=== PATIENT | male | born 1950 | race Caucasian/White ===

== ENCOUNTER 2022-01-29 08:08 | Day surgery (SDC) | payer MEDICARE, BC, SELFPAY ==
[2022-01-29 08:39] VITALS: BP 134/75; PULSE 57; RESP 16; TEMP 36.1; O2SAT 97; BMI 39.2
[2022-01-29] MEDS: Lactated Ringers 1,000 ML 15 ML IV (08:58)
[2022-01-29] MEDS: Cefazolin 2 GM in 0.9% Normal Saline 100 ML IV (09:20)
[2022-01-29] MEDS: Ropivacaine 0.5% 30 ML Vial (09:54)
[2022-01-29 10:11] VITALS: BP 115/60; BP 134/75; PULSE 54; RESP 18; TEMP 36.3; O2SAT 91
[2022-01-29 10:15] VITALS: BP 120/61; BP 134/75; PULSE 57; RESP 18; O2SAT 98
--- NOTE | 2022-01-29 10:17 | OP.PCM_ITS ---
Report of Operation Date of Procedure: 01/29/22 Description of Surgical Findings:: Preoperative diagnosis: Bilateral carpal Tunnel Syndrome Postoperative diagnosis: Bilateral carpal Tunnel Syndrome Procedure: Bilateral endoscopic Carpal Tunnel Release Surgeon: Ruben Bustamante DO Anesthesia: General with LMA Anesthesiologist: Dr. Reyes Complications: None apparent Drains: None Estimated blood loss: 2 cc Urinary output: None measured IV fluids: Per anesthesia record Specimens: None Surgical implants: None Surgical indications: This is a 71-year-old male seen in the outpatient setting diagnosed with bilateral carpal tunnel syndrome. The patient failed nonoperative management in the form of bracing, anti-inflammatory medications, activity modification. Operative intervention in form of endoscopic possible open carpal tunnel release was offered to bilateral hands. The risks, benefits, alternatives to procedure were reviewed with patient at length in the outpatient setting and he agreed to proceed. Risks included but were not limited to bleeding, infection, loss of life or limb, risk of anesthesia, incomplete release, neurovascular injury, persistent pain, need for additional surgery, stiffness, loss of hand function. Patient expressed understanding wish to proceed with surgery. Informed consent obtained in the office. Description of procedure: Patient was seen in preoperative holding area. Patient was identified by name, medical record number, date of . The operative extremities were marked with a surgical marker. We confirmed informed consent with the patient and all questions were answered to the patient's satisfaction. At time of his procedure, patient was brought to the operative suite and positioned supine a standard operating table. All bony prominences were well- padded. General anesthesia was induced and endotracheal tube placed. Bilateral upper extremities were then prepped for surgery by first applying a well-padded pneumatic tourniquet to the upper arms. We spun the bed approximately 45 degrees. 2 g Ancef was administered prior to incision by anesthesia staff. We performed a timeout at this point confirming side, site, and operation to be performed. No concerns voiced and elected to proceed. I began surgery on the right side, as this was the more symptomatic side. I first marked a transverse incision on the ulnar aspect of the palmaris longus tendon in the proximal wrist crease approximately 1-1/2 cm in length. Skin was sharply incised with 15 blade scalpel. Superficial veins were cauterized with bipolar cautery. The fatty layer was dissected through bluntly until the antebrachial fascia was encountered. The antebrachial fascia were split in line with the fibers as well as the incision with the Littler scissors. I then placed a skin hook around the antebrachial fascia distally. I open the proximal 1 cm longitudinally of the antebrachial fascia. I then sequentially dilated within the carpal tunnel utilizing Arthrex supplied dilators. I then utilized the synovial elevator to debride the undersurface of the transverse carpal ligament free from synovium. I then removed the elevator and inserted the centerline endoscopic carpal tunnel release system. The transverse carpal ligament was well visualized and free from underlying synovium. I identified its distal aspect by blotting the skin and perivascular fat was visualized. I then carefully deployed the scalpel from the sheath and, in retrograde fashion, sequentially released the transverse carpal ligament longitudinally. No aberrancies of the median nerve were apparent. Complete release was confirmed with Littler scissors acting as a probe. The tourniquet was then deflated. Hemostasis was excellent. A field block was administered with 7 cc 0.5% plain Marcaine. Skin was closed with interrupted horizontal mattress sutures of 4-0 nylon suture. Sterile compression dressing was then applied. I then turned my attention to the left side. I marked a transverse incision on the ulnar aspect of the palmaris longus tendon in the proximal wrist crease approximately 1-1/2 cm in length. Skin was sharply incised with 15 blade scalpel. Superficial veins were cauterized with bipolar cautery. The fatty layer was dissected through bluntly until the antebrachial fascia was encountered. The antebrachial fascia were split in line with the fibers as well as the incision with the Littler scissors. I then placed a skin hook around the antebrachial fascia distally. I open the proximal 1 cm longitudinally of the antebrachial fascia. I then sequentially dilated within the carpal tunnel utilizing Arthrex supplied dilators. I then utilized there synovial elevator to debride the undersurface of the transverse carpal ligament free from synovium. I then removed the elevator and inserted the centerline endoscopic carpal tunnel release system. The transverse carpal ligament was well visualized and free from underlying synovium. I identified its distal aspect by blotting the skin and perivascular fat was visualized. I then carefully deployed the scalpel from the sheath and, in retrograde fashion, sequentially released the transverse carpal ligament longitudinally. No aberrancies of the median nerve were apparent. Complete release was confirmed with Littler scissors acting as a probe. The tourniquet was then deflated. Hemostasis was excellent. A field block was administered with 10 cc 0.5% plain Marcaine. Skin was closed with interrupted horizontal mattress sutures of 4-0 nylon suture. Sterile compression dressing was then applied. Patient tolerated procedure well without apparent complication.he was safely extubated in the operative suite. He was transferred to PACU in stable condition. Intraoperative medications: Post Operative Plan: Weightbearing: Weightbearing as tolerated bilateral upper extremities Antibiotics: Ancef 2 g x 1 dose preoperatively DVT Prophylaxis: None indicated Barnes: None Dressing: Okay to remove on postoperative day #2, shower. Apply Band-Aid X-Rays: None Pain Medication: Provided in the office Follow-up: 2 weeks post-operatively with me in the office
--- NOTE | 2022-01-29 10:17 | PCM.DC ---
Discharge Instructions Follow Up Care Test Results: Test results from this visit will be discussed in further detail at your follow-up appointment, if applicable. Discharge Plan Admission Primary Reason for Your Visit: Bilateral carpal tunnel release Attending Provider: Ruben Bustamante Instructions Additional Instructions / Restrictions: Follow preprinted instructions from your surgeons office Discharge Orders/Prescriptions Prescriptions: New hydrocodone-acetaminophen 5-325 mg tablet 1 tab PO Q6H PRN (Reason: pain) 3 Days Qty: 12 RF: 0 Continued multivitamin Tablet 1 tab PO DAILY RF: 0 atorvastatin 40 mg tablet 40 mg PO DAILY RF: 0 omeprazole 20 mg Capsule,Delayed Release(Dr/Ec) 20 mg PO DAILY RF: 0 levothyroxine [Synthroid] 200 mcg tablet 200 mcg PO DAILY RF: 0 metoprolol succinate [Toprol XL] 25 mg tablet extended release 24 hr 25 mg PO DAILY RF: 0 lisinopril 40 mg tablet 40 mg PO DAILY RF: 0 ranolazine [Ranexa] 500 mg tablet extended release 12 hr 500 mg PO BID RF: 0 cholecalciferol (vitamin D3) [Vitamin D3] 25 mcg (1,000 unit) Tablet 75 mcg PO DAILY RF: 0 aspirin 81 mg Capsule 81 mg PO DAILY RF: 0 Referrals / Follow Up: P[facility]EL[facility]ST[facility] [Other] Ruben Bustamante DO [STAFF PHYSICIAN] - Within 2 Weeks Disposition Disposition (needs filled in before D/C Order can be placed): Home, Self Care
[2022-01-29 10:30] VITALS: BP 133/68; BP 134/75; PULSE 48; RESP 18; O2SAT 97
[2022-01-29 10:37] VITALS: BP 134/75; BP 137/65; PULSE 50; RESP 16; TEMP 36.6; O2SAT 100
[2022-01-29 11:25] VITALS: BP 114/64; BP 134/75; PULSE 55; RESP 16; TEMP 36.6; O2SAT 98
== END 2022-01-29 23:59 | disposition home or self-care (01) ==
LOC: SDC 08:13 → AC 08:14
PROVIDERS: Visit Provider Student in an Organized Health Care Education/Training Program
PROC: (CPT 29848; principal; 2022-01-29 08:25)
DX: G56.03 Carpal tunnel syndrome, bilateral upper limbs (principal); E66.01 Morbid (severe) obesity due to excess calories; Z68.41 Body mass index [BMI] 40.0-44.9, adult; I25.10 Atherosclerotic heart disease of native coronary artery without angina pectoris; I10 Essential (primary) hypertension; E78.00 Pure hypercholesterolemia, unspecified; E07.9 Disorder of thyroid, unspecified; K21.9 Gastro-esophageal reflux disease without esophagitis; Z71.3 Dietary counseling and surveillance; Z79.899 Other long term (current) drug therapy; Z87.891 Personal history of nicotine dependence
CPT/HCPCS: 29848; 01810; J7120; J2405

== ENCOUNTER → 2023-04-26 | Outpatient (CLI) | payer MEDICARE, BC, SELFPAY ==
--- NOTE | 2023-04-26 14:21 | VDLE_ITS ---
Reason For Study: LLE swelling Procedure LEFT This is a venous duplex using B-mode, color GSV is normal. flow and spectral Doppler. CFV is compressible, spontaneous, phasic, Exam performed in department. competent, and demonstrates normal The study was technically difficult. augmentation. A preliminary report was called and/or faxed FV is compressible, spontaneous, phasic, to Dr. Justino Lucero @ [phone] @ 2:45 pm. competent and demonstrates normal augmentation. POP V is compressible, spontaneous, phasic, competent and demonstrates normal augmentation. T/P Trunk is compressible. PTV is compressible. LT PerV is compressible. VL/Venous Duplex US, Unilateral Interpretation Summary Deep veins of the left lower extremity are patent and compressible segmentally. There is no evidence of left lower extremity deep vein thrombosis. The left great saphenous vein pamela ears patent and compressible segmentally. Ordering Physician: Surendra Lucero Referring Physician: OTD Performed By: Erma Wu RDCS, RVT
== END | disposition home or self-care (01) ==
LOC: CVS 14:20
PROVIDERS: Referring Provider Specialist; Visit Provider Specialist
DX: R22.42 Localized swelling, mass and lump, left lower limb (principal); Z96.652 Presence of left artificial knee joint
CPT/HCPCS: 93971

== ENCOUNTER → 2024-12-13 | Outpatient (CLI) | payer MEDICARE, BC, SELFPAY ==
--- NOTE | 2024-12-13 12:16 | NEURO_ITS ---
NCS and/or EMG Patient Report Ordering Doctor: Camille Sharp DATE OF SERVICE: 12/13/24 Laith presents for electrodiagnostic testing of the left upper limb. Reports numbness and tingling in the fourth and fifth digits of the left hand. Electrodiagnostic findings: Left median motor nerve demonstrates prolonged la tency with normal amplitude and reduced conduction velocity. Left ulnar motor nerve demonstrates a decrease in conduction velocity proximally 30% across the elbow. Prolonged left median and left ulnar F?wave. Prolonged left median sensory latency at the wrist. Needle EMG testing was performed the left upper limb. All muscles tested showed no evidence of denervation with normal motor unit action potentials Electrodiagnostic impression: This is an abnormal study in the left upper limb. 1. Electrodiagnostic findings suggestive of left-sided median mononeuropathy. This is consistent with a moderate left carpal tunnel syndrome. 2. Electrodiagnostic findings suggestive of left-sided ulnar neuropathy. This consistent with a moderate left cubital tunnel syndrome. Multi Select Codes Neurology Neurology Interp Codes: 98878-45 Musc test done w/n test comp (interp) and 03317-07 Nrv cndj tst 5-6 studies (interp)
== END | disposition home or self-care (01) ==
LOC: PSN 09:40
PROVIDERS: PCP Nurse Practitioner Adult Health; Referring Provider Student in an Organized Health Care Education/Training Program; Visit Provider Student in an Organized Health Care Education/Training Program
DX: G56.22 Lesion of ulnar nerve, left upper limb (principal)
CPT/HCPCS: 95886; 95909

== ENCOUNTER → 2025-01-01 | Outpatient (CLI) | payer MEDICARE, BC, SELFPAY ==
--- NOTE | 2025-01-01 08:45 | MRI_ITS ---
PROCEDURE: SPINE CERVICAL (ROUTINE) REASON FOR EXAM: Cervical radiculopathy TECHNIQUE: Cervical spine MRI without intravenous gadolinium-based contrast. CONTRAST: None COMPARISON: 11/23/2024. FINDINGS: Cervical vertebral body heights are preserved. No suspicious marrow signal abnormality. Few small presumed vertebral body hemangiomas in the absence of known malignancy. Trace likely degenerative anterolisthesis at C4-C5. Unremarkable cord signal.. C2-3: No significant spinal canal or foraminal stenosis. Mild facet arthropathy on the right. C3-4: Mild diffuse disc bulging. Facet/uncovertebral arthropathy. Gtttnsel-ao-idedxl ecuk-xpvrehq-hpxw-right foraminal stenosis. Mild ligamentum flavum hypertrophy. No significant spinal canal stenosis. C4-5: Disc bulging with small superimposed posterior central/right paracentral disc protrusion contacting the ventral cord without mass-effect. Facet/uncovertebral arthropathy. Moderate right and mild/moderate left foraminal stenoses. No significant spinal canal stenosis. C5-6: Severe loss of disc height with diffuse disc bulging and left paracentral disc/osteophyte complex contacting the ventral cord with some mass-effect. Facet/uncovertebral arthropathy. Mild/moderate bilateral foraminal stenosis. Mild focal spinal canal stenosis. C6-7: Left paracentral and subarticular disc/osteophyte complex likely contacting the ventral cord with some mild mass-effect. Mild focal spinal canal stenosis. Facet/uncovertebral arthropathy. Mild/moderate left and mild right foraminal stenosis. C7-T1: Left subarticular and foraminal disc/osteophyte complex contacting the ventral cord with some mass-effect. Mild/moderate left foraminal stenosis. No significant right foraminal stenosis. Facet/uncovertebral arthropathy. Mild spinal canal stenosis. Other: Degenerative changes at C1-C2. Incompletely imaged probable aberrant right subclavian on the gold leaf printer, normal variant. Presumed vertebral body hemangiomas in the thoracolumbar spine, incompletely evaluated. Diverticulosis. Thoracolumbar spondylosis incompletely evaluated. Operative changes overlying the lumbar posteriorly. Small rounded subcutaneous lesion, presumed sebaceous cysts or epidermal inclusion cyst overlying the sacrum posteriorly abutting the dermis. MRI/Spine Cervical (Routine) IMPRESSION: 1. Multilevel spondylosis as above. Variable foraminal stenoses up to moderate -to-severe at C3-C4. spinal canal stenoses up to mild. 2. Additional description as above. Reading Location: [facility]
== END | disposition home or self-care (01) ==
LOC: MRI 08:16
PROVIDERS: PCP Nurse Practitioner Adult Health; Referring Provider Student in an Organized Health Care Education/Training Program; Visit Provider Student in an Organized Health Care Education/Training Program
DX: M54.12 Radiculopathy, cervical region (principal)
CPT/HCPCS: 72141

== ENCOUNTER → 2025-02-19 | Outpatient (CLI) | payer MEDICARE, BC, SELFPAY ==
--- NOTE | 2025-02-19 15:30 | MRI_ITS ---
PROCEDURE: SPINE LUMBAR (ROUTINE) (MRISPL), 02/19/2025 REASON FOR EXAM: PAIN TECHNIQUE: Multisequence multiplanar MR of the lumbar spine was performed without IV contrast. COMPARISON: 11/23/2024 FINDINGS: Operative changes in the posterior paraspinal soft tissues with questioned LEFT hemilaminectomy at L3, suboptimally visualized due to a change in imaging planes and associated gap in axial sequences at this level. Vertebral body heights are preserved. Multiple T1 bright presumed vertebral body hemangiomas. No significant malalignment. Conus medullaris terminates above the field of view of axial images, probably at the superior L1 endplate level on sagittal images. Unremarkable appearance of the cauda equina. Diffuse disc desiccation. Additional level by level findings as below: L1-2: Incompletely imaged L1 vertebral body on axial sequences. Mild diffuse disc bulging. Mild facet arthropathy. Mild ligamentum flavum hypertrophy. No significant spinal canal or foraminal stenosis. L2-3: Prominent diffuse disc bulging with superimposed RIGHT foraminal and lateral as well as LEFT paracentral and LEFT foraminal/lateral disc protrusions. Likely tiny posterior central annular fissure. Ligamentum flavum hypertrophy. Facet arthropathy. Mild/moderate focal spinal canal stenosis with incomplete effacement of CSF. Mild bilateral foraminal stenosis.. L3-4: Diffuse disc bulging slightly asymmetric to the LEFT, probably contacting the exiting nerve root in the foraminal region. LEFT foraminal annular fissure. Facet arthropathy. Ligamentum flavum hypertrophy. Severe focal spinal canal stenosis with canal dimensions roughly 14 x 7 mm with complete effacement of CSF. Narrowing of the bilateral lateral recesses. Suspect mild/moderate LEFT and mild RIGHT foraminal stenosis, suboptimally delineated due to the above referenced gap in axial imaging at this level. L4-5: Prominent diffuse disc bulging. Facet arthropathy and ligamentum flavum hypertrophy. Severe focal spinal canal stenosis with virtually complete effacement of CSF, spinal canal dimensions 14 x 11 mm. Suspect contact of the exiting nerve roots by bulging disc in the AWKZ-islclzn-twwa-RIGHT foraminal regions. Mild/moderate LEFT and mild RIGHT foraminal stenosis. L5-S1: Prominent loss of disc height with diffuse disc bulging and multifocal annular fissures with superimposed small disc protrusions of the largest in the LEFT paracentral region. Additional foraminal and lateral disc/osteophyte complexes also likely present. Narrowing of the LEFT lateral recess. No significant focal spinal canal stenosis. Suspect contact of the exiting nerve roots bilaterally with foraminal disc bulges. Mild RIGHT and lycd-ys-uowcpamv LEFT foraminal stenosis. Other: Diverticulosis on the stunner animal. Splenomegaly, 13.7 cm coronal. Likely aberrant RIGHT subclavian is partially imaged on the stunner animal, normal variant. 2.0 cm presumed sebaceous or epidermal inclusion cyst abutting the dermis along the posterior paraspinal soft tissues just to the RIGHT of midline overlying the sacrum at the level of S1-S2. Prostatomegaly. Bladder wall trabeculation and tiny diverticulum suggesting chronic bladder outlet obstruction. MRI/Spine Lumbar (Routine) IMPRESSION: 1. Multilevel spondylosis as detailed. Variable spinal canal stenoses up to se scott at L3-L4 and L4-L5. No high-grade foraminal stenosis identified. 2. Prostatomegaly with findings suggestive of chronic bladder outlet obstructio n. Correlate for superimposed cystitis. 3. Mild splenomegaly 4. Additional description as above. Reading Location: [id number]
== END | disposition home or self-care (01) ==
LOC: MRI 14:50
PROVIDERS: PCP Nurse Practitioner Adult Health; Referring Provider Student in an Organized Health Care Education/Training Program; Visit Provider Student in an Organized Health Care Education/Training Program
DX: M54.50 Low back pain, unspecified (principal)
CPT/HCPCS: 72148

== ENCOUNTER → 2025-09-17 | Outpatient (CLI) | payer MEDICARE, BC, SELFPAY | END | disposition home or self-care (01) | LOC: PSN 09:31 | PROVIDERS: PCP Nurse Practitioner Adult Health; Referring Provider Nurse Practitioner Acute Care; Visit Provider Nurse Practitioner Acute Care | DX: R06.02 Shortness of breath (principal) | CPT/HCPCS: 94060; 94726; 94729 ==

== ENCOUNTER → 2025-09-25 | Outpatient (CLI) | payer MEDICARE, BC, SELFPAY ==
[2025-09-25 12:57] VITALS: PULSE 100; PULSE 64; PULSE 70; PULSE 75; PULSE 86; PULSE 90; PULSE 93; PULSE 96; O2SAT 91; O2SAT 93; O2SAT 94; O2SAT 95; O2SAT 96
--- NOTE | 2025-09-28 11:42 | WT_ITS ---
PSN 6 Minute Walk Test 6 Minute Walk Test 6 Minute Walk Test: 6 Minute Walk Test PSN:6-Minute Walk Test Start: 09/25/25 12:57 Freq: Status: Active Protocol: [id number].[id number] Document 09/25/25 12:57 [facility] (Rec: 09/25/25 13:00 [facility] [id number]) 6 Minute Walk Test Date Performed 09/25/25 Time Performed 12:15 Height 5 ft 10 in Weight: 280 lb Weight in Pounds 280.[address]: Alexandra Bocanegra [employer] Assistive device None used: Pre-test Oxygen Delivery Room Air Method Pulse Ox (%) 95 Pulse Rate (60-100 64 beats/min) Dyspnea Maya Scale ( 0 0-10) 1st minute Oxygen Delivery Room Air Method Pulse Ox (%) 95 Pulse Rate (60-100 75 beats/min) Dyspnea Maya Scale ( 1 0-10) Number of Rests 0 Taken 2nd minute Oxygen Delivery Room Air Method Pulse Ox (%) 93 Pulse Rate (60-100 86 beats/min) Dyspnea Maya Scale ( 2 0-10) Number of Rests 0 Taken Reported Symptoms Increased Work of Breathing 3rd minute Oxygen Delivery Room Air Method Pulse Ox (%) 94 Pulse Rate (60-100 100 beats/min) Dyspnea Maya Scale ( 3 0-10) Number of Rests 0 Taken Reported Symptoms Increased Work of Breathing 4th minute Oxygen Delivery Room Air Method Pulse Ox (%) 91 Pulse Rate (60-100 96 beats/min) Dyspnea Maya Scale ( 3 0-10) Number of Rests 0 Taken Reported Symptoms Increased Work of Breathing 5th minute Oxygen Delivery Room Air Method Pulse Ox (%) 95 Pulse Rate (60-100 93 beats/min) Dyspnea Maya Scale ( 3 0-10) Number of Rests 0 Taken Reported Symptoms Increased Work of Breathing 6th minute Oxygen Delivery Room Air Method Pulse Ox (%) 94 Pulse Rate (60-100 90 beats/min) Dyspnea Maya Scale ( 3 0-10) Number of Rests 0 Taken Reported Symptoms Increased Work of Breathing Post-test Oxygen Delivery Room Air Method Pulse Ox (%) 96 Pulse Rate (60-100 70 beats/min) Dyspnea Maya Scale ( 0 0-10) Full Laps Walked 16 Partial Lap, Number 0 of Tiles Walked Total Distance 944 Walked (ft) Interpretation Interpretation: The patient ambulated 944 feet over the course of 6 minutes beginning on room air without assistive devices. Pretesting oxygen saturation was noted to be 95% on room air. With ambulation, the makenzie oxygen saturation was 91%. This represents a significant exertional oxygen desaturation, consistent with a pulmonary limitation to exercise tolerance. Recommendations Recommendations: There is no indication for the use of supplemental oxygen at this time.
== END | disposition home or self-care (01) ==
LOC: PSN 11:53
PROVIDERS: PCP Nurse Practitioner Adult Health; Referring Provider Nurse Practitioner Acute Care; Visit Provider Nurse Practitioner Acute Care
DX: R06.02 Shortness of breath (principal)
CPT/HCPCS: 94618